=== PATIENT | female | born 1995 | race African-American/Black ===

== ENCOUNTER 2016-10-20 13:23 | Emergency (ER) | payer SELFPAY ==
[~2016-10-20] VITALS: Ht 167.6 cm; Wt 60.4 kg
[~2016-10-20 13:23] MED LIST: BLEPH-1010 % OU
[2016-10-20 15:04] LABS: URINE BILIRUBIN - DIPSTICK NEGATIVE (NEGATIVE); URINE BLOOD DIPSTICK NEGATIVE (NEGATIVE); URINE CLARITY CLEAR; URINE COLOR YELLOW; URINE GLUCOSE - DIPSTICK NEGATIVE (NEGATIVE); URINE KETONE NEGATIVE (NEGATIVE); URINE LEUK ESTERASE NEGATIVE (NEGATIVE); URINE NITRITE - DIPSTICK NEGATIVE (Negative); URINE PROTEIN - DIPSTICK NEGATIVE (NEG-TRACE)
[2016-10-20 15:05] LABS: HEMATOCRIT 37.3 % (37.0-47.0); IMMATURE GRANULOCYTES 0.3 % (0.0-1.0); MEAN CELL VOLUME 63.1 fL CALC (80.0-100.0); MEAN CORPUSCULAR HGB 20.3 pG CALC (26.0-32.0); MEAN CORPUSCULAR HGB CONC 32.2 g/L CALC (32.0-36.0); NEUT# 6.43 thou/uL (2.00-7.15); RED BLOOD COUNT 5.91 mill/uL (4.20-5.60); RED CELL DISTRI WIDTH 19.4 % (11.5-15.5)
[2016-10-20 15:12] LABS: ALBUMIN 5.1 g/dL (3.2-5.0); ALKALINE PHOSPHATASE 82 u/l (38-126); ANION GAP 20 (6-22 (CALC)); BILIRUBIN, TOTAL 0.7 mg/dL (0.0-1.4); BUN 6 mg/dL (7-17); BUN/CREATININE RATIO 10 (12-20 (CALC)); CARBON DIOXIDE 23 mmol/l (22-30); CHLORIDE 100 mmol/l (95-108); CREATININE 0.6 mg/dL (0.5-1.0); GFR > 60 ML/MIN (>=60 (CALC)); GFR FOR AFR.AMER. > 60 ML/MIN (>=60 (CALC)); GLUCOSE 85 mg/dL (65-105); POTASSIUM 3.9 mmol/l (3.5-5.1); SGOT/AST 35 u/l (14-36); SGPT/ALT 54 u/l (9-52); SODIUM 140 mmol/l (137-146); TOTAL PROTEIN 9.4 g/dL (6.3-8.2)
[2016-10-20 18:05] VITALS: BP 137/70
== END 2016-10-20 18:11 | disposition home or self-care (01) | DRG 998 ==
LOC: ED 13:23
PROVIDERS: Emergency Medicine
DX: O99.619 Diseases of the digestive system complicating pregnancy, unspecified trimester (principal); R19.7 Diarrhea, unspecified